=== PATIENT | female | born 2005 | race Two or more races ===

== ENCOUNTER 2025-05-15 20:46 | Emergency (ER) | payer MEDICAID, OTHER ==
[~2025-05-15] VITALS: Ht 154.9 cm; Wt 61.2 kg
[2025-05-15] MEDS ORDERED: ONDANSETRON 4 MG/2 ML VIAL ONE (22:20)
[2025-05-15] MEDS: IV NORMAL SALINE 1000 ML BAG IV ONE (22:36)
[2025-05-15] MEDS: ONDANSETRON 4 MG/2 ML VIAL IV ONE (22:37)
[2025-05-15 22:51] LABS: BASOPHILS % (AUTO) 0.3 % (0.0-2.0); EOSINOPHILS % (AUTO) 0.4 % (0.0-7.0); HEMATOCRIT 38.2 % (31.2-41.9); HEMOGLOBIN 12.7 g/dL (10.9-14.3); LYMPHOCYTES # (AUTO) 1.8 K/uL (0.8-4.8); MEAN CORPUSCULAR HEMOGLOBIN 29.3 uug (24.7-32.8); MEAN CORPUSCULAR HGB CONC 33 g/dL (32.3-35.6); MEAN CORPUSCULAR VOLUME 87.9 fL (75.5-95.3); MONOCYTES # (AUTO) 0.5 K/uL (0.1-1.30); MONOCYTES % (AUTO) 5.5 % (0-11); NEUTROPHILS % (AUTO) 74.8 % (31.5-64.5); PLATELET COUNT (AUTO) 307 K/uL (179-408); RED BLOOD CELL COUNT(AUTO) 4.35 MIL/uL (3.63-4.92); RED CELL DISTRIBUTION WIDTH 13.6 % (12.3-17.7); WHITE BLOOD COUNT (AUTO) 9.4 K/uL (3.8-11.8)
[2025-05-15 22:52] LABS: DIFFERENTIAL COMMENT 1
[2025-05-15 22:56] LABS: CALCIUM 8.8 mg/dL (8.5-10.1); CREATININE 0.8 mg/dL (0.6-1.3); POTASSIUM 3.5 mmol/L (3.5-5.1)
[2025-05-15 23:03] LABS: ALBUMIN 3.9 g/dL (3.4-5.0); BILIRUBIN,DIRECT 0.1 mg/dL (0.0-0.2); BILIRUBIN,TOTAL 0.1 mg/dL (0.2-1.0); TOTAL PROTEIN, SERUM 7.3 g/dL (6.4-8.2)
[2025-05-15 23:17] LABS: *URINE HCG, QUAL NEGATIVE (NEGATIVE)
[2025-05-15 23:35] VITALS: BP 116/73; TEMP 98; O2SAT 99
== END 2025-05-15 23:46 | disposition home or self-care (01) ==
LOC: ER 20:46
DX: R20.2 Paresthesia of skin (principal); R55 Syncope and collapse; F41.9 Anxiety disorder, unspecified
CPT/HCPCS: 99284; 96374; 96361; 80076; 80048; 84703; 84443; 85025; 36415; 93005; J2405; J7040; A4606; A4663

== ENCOUNTER 2025-05-21 13:33 | Emergency (ER) | payer OTHER ==
[~2025-05-21] VITALS: Ht 154.9 cm; Wt 63.5 kg
[2025-05-21 14:39] LABS: BASOPHILS % (AUTO) 0.6 % (0.0-2.0); HEMATOCRIT 38.9 % (31.2-41.9); HEMOGLOBIN 12.8 g/dL (10.9-14.3); LYMPHOCYTES % (AUTO) 40.1 % (20.5-74.5); MEAN CORPUSCULAR HEMOGLOBIN 29.1 uug (24.7-32.8); MEAN CORPUSCULAR HGB CONC 33 g/dL (32.3-35.6); MEAN CORPUSCULAR VOLUME 88.5 fL (75.5-95.3); MONOCYTES # (AUTO) 0.2 K/uL (0.1-1.30); MONOCYTES % (AUTO) 3.9 % (0-11); NEUTROPHILS # (AUTO) 2.7 K/uL (1.8-8.9); NEUTROPHILS % (AUTO) 54.4 % (31.5-64.5); PLATELET COUNT (AUTO) 316 K/uL (179-408); RED CELL DISTRIBUTION WIDTH 13.6 % (12.3-17.7); WHITE BLOOD COUNT (AUTO) 4.9 K/uL (3.8-11.8)
[2025-05-21 14:40] LABS: DIFFERENTIAL COMMENT 1
[2025-05-21 14:44] LABS: CALCIUM 8.6 mg/dL (8.5-10.1); CARBON DIOXIDE 26 mmol/L (21-32); CHLORIDE 104 mmol/L (98-107); CREATININE 0.5 mg/dL (0.6-1.3); GLUCOSE 114 mg/dL (74-106); POTASSIUM 3.7 mmol/L (3.5-5.1); SODIUM SERUM 140 mmol/L (136-145); UREA NITROGEN, BLOOD 11 mg/dL (7-18)
[2025-05-21 16:11] LABS: MAGNESIUM 2.1 mg/dL (1.8-2.4)
[2025-05-21] MEDS ORDERED: LORA-259 PO (16:26)
[2025-05-21 16:53] VITALS: BP 112/77; O2SAT 99
== END 2025-05-21 16:56 | disposition home or self-care (01) ==
LOC: ER 13:33
DX: R20.2 Paresthesia of skin (principal); R51.9 Headache, unspecified; R11.0 Nausea; R55 Syncope and collapse
CPT/HCPCS: 36415; 83735; 84484; 85025; A4606; A4663

== ENCOUNTER 2025-08-06 15:46 | Emergency (ER) | payer OTHER ==
[~2025-08-06] VITALS: Ht 154.9 cm; Wt 66.7 kg
[~2025-08-06 15:46] MED LIST: LORA-259 PO
[2025-08-06 16:16] VITALS: BP 128/73
[2025-08-06 18:05] LABS: PLATELET COUNT (AUTO) 330 K/uL (179-408); RED BLOOD CELL COUNT(AUTO) 4.37 MIL/uL (3.63-4.92); RED CELL DISTRIBUTION WIDTH 14.1 % (12.3-17.7); WHITE BLOOD COUNT (AUTO) 7.9 K/uL (3.8-11.8)
[2025-08-06 18:18] LABS: CREATININE 0.6 mg/dL (0.6-1.3); SODIUM SERUM 141 mmol/L (136-145); UREA NITROGEN, BLOOD 15 mg/dL (7-18)
[2025-08-06 18:20] LABS: *BILIRUBIN,URIN NEGATIVE (NEGATIVE); *BLOOD, URINE NEGATIVE (NEGATIVE); *CLARITY,URINE CLEAR (CLEAR); *COLOR,URINE YELLOW (YELLOW); *KETONES,URINE NEGATIVE (NEGATIVE); *PROTEIN,URINE NEGATIVE (NEGATIVE); *UROBILINOGEN,URINE 0.2 E.U./dl (NORMAL); LEUKOCYTE ESTERASE ,URINE NEGATIVE (NEGATIVE); NITRITE, URINE NEGATIVE (NEGATIVE); UGLUCOSE NEGATIVE (NEGATIVE)
[2025-08-06 18:22] LABS: *URINE HCG, QUAL NEGATIVE (NEGATIVE)
[2025-08-06 18:23] LABS: ASPARTATE AMINOTRANSFERASE 9 U/L (15-37); TOTAL PROTEIN, SERUM 8.0 g/dL (6.4-8.2)
[2025-08-06 18:32] LABS: PREGNANCY TEST SERUM QUAN < 1 miul/L (0-6)
[2025-08-06 18:44] VITALS: BP 128/73; TEMP 98.3; O2SAT 99
== END 2025-08-06 18:45 | disposition home or self-care (01) ==
LOC: ER 15:57
DX: R06.02 Shortness of breath (principal); R07.89 Other chest pain; R42 Dizziness and giddiness; F41.9 Anxiety disorder, unspecified; R10.2 Pelvic and perineal pain; F32.A Depression, unspecified
CPT/HCPCS: 36415; 70030-TC; 71045; 84443; 84480; 84484; 84703; 85025; 85730; A4606; A4663